=== PATIENT | female | born 1975 | race Two or more races ===

== ENCOUNTER 2025-07-24 22:42 | Inpatient (IN) | payer MEDICAID, SELFPAY ==
[2025-07-24 23:05] VITALS: PULSE 92; RESP 24; O2SAT 96
--- NOTE | 2025-07-24 23:12 | PD.EDABDPN ---
ED Abdominal Pain RME/HPI General Chief Complaint: Abdominal Pain Stated complaint: ABD PAIN Time seen by provider: 07/24/25 23:14 Arrival date/time: 07/24/25 22:42 Limitations: no limitations RME / HPI RME / HPI narrative: Dr. Mary?s Main ED Evaluation: 49yo female with no significant past medical history BIBA from home presents to the ED for complaints of epigastric and RLQ pain x 0800. Pain is intermittent in nature. Patient reports associated nausea and vomiting throughout the day. Patient took Tylenol at home, but vomited it back up. Last bowel movement was at 0600 this morning. Denies any history of similar symptoms. Denies tobacco, alcohol, or illicit drug use. No previous abdominal surgeries. NKA. Related Data Allergies Allergy/AdvReac Type Severity Reaction Status Date / Time No Known Allergies Allergy Verified 07/24/25 23:09 Review of Systems Review of Systems Systems Reviewed: All systems reviewed, normal except as documented ED Exam General Limitations: Present no limitations General appearance: Present alert and in no apparent distress Head Head exam: Present atraumatic Eye Eye exam: Present normal appearance, PERRL and EOMI ENT ENT exam: Present normal exam, normal oropharynx and mucous membranes moist Neck Neck exam: Present normal inspection, full ROM and trachea midline Chest Chest inspection: Present normal inspection and symmetric chest wall rise Respiratory Respiratory exam: Present normal lung sounds bilaterally; Absent respiratory distress Cardiovascular Cardiovascular exam: Present regular rate, normal rhythm and normal heart sounds Abdominal Exam Abdominal exam: Present soft and tenderness (diffuse); Absent distention, guarding or rebound Extremities Exam Extremities exam: Present normal inspection and full ROM Neurological Exam Neurological exam: Present alert, oriented X3 and CN II-XII intact Psychiatric Psychiatric exam: Present normal affect and normal mood Skin Skin exam: Present warm, dry, intact and normal color Course Quality Measures none Orders Category Date Time Status CT Screening NOW Care 07/24/25 23:17 Active NPO NOW Care 07/25/25 01:59 Active Consult to General Surgery Stat Cons 07/25/25 01:59 Ordered Diet NPO (NOW) Diet 07/25/25 01:[address] abdomen pelvis w con Stat Exams 07/24/25 23:17 Taken US abdomen limited Stat Exams 07/25/25 00:00 Ordered Blood Culture (Lab) Stat Lab 07/25/25 02:11 Received CBC Stat Lab 07/24/25 23:35 Completed CMP [Comprehensive Metabolic Panel] Stat Lab 07/24/25 23:35 Completed HCG,Qualitative Serum Stat Lab 07/24/25 23:35 Completed Lipase Stat Lab 07/24/25 23:35 Completed Troponin I Stat Lab 07/24/25 23:35 Completed UA, C/S IF [Urinalysis, C/S if Indicated] Stat Lab 07/25/25 01:50 Completed Morphine* Inj Med 07/24/25 23:18 Discontinued 2 mg IVP X1 ONE Ondansetron Inj [Zofran Inj] Med 07/24/25 23:18 Discontinued 4 mg IVP X1 ONE Piper/Tazo Inj [Zosyn Inj] 4.5 gm Med 07/25/25 01:58 Discontinued Sodium Chloride 0.9% (Pop) [NS 0.9% mini bag] 100 ml IV STAT Ringers Lactated 1000 ml [Lactated Ringers] 1,000 ml Med 07/25/25 01:43 Discontinued IV 999 mls/hr Vital Signs Vital signs: Vital Signs Temperature 101.7 F H 07/24/25 23:26 Pulse Rate 97 07/24/25 23:26 Respiratory Rate 19 07/24/25 23:26 Blood Pressure 136/74 H 07/24/25 23:26 Pulse Oximetry (%) 100 07/24/25 23:26 Oxygen Delivery Method Room Air 07/24/25 23:26 Abdominal Pain MDM MDM Narrative MDM Narrative:: Scribe Attestation: 07/24/25 - Vicki Briseno am scribing for and in the presence of Dr. Mary. Patient is a 49-year-old female to the emergency department concerns for diffuse abdominal pain and vomiting. Vital signs and exam as listed. Concern for urinary tract infection, appendicitis, cholelithiasis, cholecystitis pancreatitis gastritis among others. Ordered labs CT abdomen as well as ultrasound of the right upper quadrant. Patient did present initially appeared to be febrile at 101.7 however on repeat assessment approximately 30 minutes after temperature now normothermic, patient did not receive any antipyretics. Labs with evidence of leukocytosis 13.8, left shift of 93%. Patient with mild hypokalemia potassium 3.3, no significant transaminitis troponin not elevated patient's not lipase not elevated. CT abdomen and pelvis Ultrasound 0156: Teleradiology called, stating the patient has acute appendicitis. Will order blood cultures antibiotics. 0158: Discussed case with Dr. Samson from general surgery regarding consultation. Discussed patients ED course, exam findings, labs, and radiology results. Agrees to consult. 0159: Discussed case with the resident physician, attending Dr. Randhawa from Hospitalist service regarding admission. Discussed patients ED course, exam findings, labs, and radiology results. The Hospitalist agrees to accept the patient for admission. Patient data External records reviewed:: [facility] previous records (Per chart review, patient has no previous ED visits or admissions to this facility.) and EMS form Clinical information provided by:: patient Social determinants that could affect healthcare access:: none Patient has the following chronic illnesses:: none How is presenting disease/condition affected by chronic disease/condition?: no chronic disease Evaluation data The following diagnostics were reviewed and interpreted by me:: lab results and radiology exam(s) Lab and/or radiology exams considered but not ordered:: none Interpretation Summary: CT scan of the abdomen and pelvis with intravenous contrast (axial sections with sagittal and coronal reformats) July 25, 2025 0033 hours Clinical History: Abdominal pain, obstruction, appendicitis. Comparison: None available at the time of this report. Findings: The lung bases are clear. The liver, gallbladder, pancreas, spleen, kidneys and adrenals are unremarkable. No evidence of bowel obstruction. Thickening of the appendix measuring up to 1.5 cm associated with peripheral fat stranding, no perforation, no collections. The uterus and ovaries are within normal limits. There is no mesenteric or retroperitoneal adenopathy. The urinary bladder is unremarkable. There is no free fluid or free air. The osseous structures are unremarkable. Impression: Acute appendicitis. Surgical consult is recommended. This report has been electronically signed by: Robbie Gale MD. Medications / Prescriptions Medications or Prescriptions considered but not ordered:: none Medication administrations:: Medication Administration History Acetaminophen (Acetaminophen 325 Mg Tablet) 650 mg PO Q6H PRN PRN Reason: Fever >100.4 Stop: 08/24/25 02:22 Sodium Chloride (Ns) 1,000 mls @ 75 mls/hr IV .[id number] JERRY Stop: 08/24/25 02:29 Piperacillin/Tazobactam/Dextrose (Zosyn) 3.375 gm in 50 mls @ 100 mls/hr IV Q8HR JERRY; Protocol Stop: 08/01/25 05:59 Morphine Sulfate (Morphine Sulf Inj 4 Mg/Ml Vial) 2 mg IVP Q4HR PRN PRN Reason: PAIN SCALE 4-10(Mod-Sev Stop: 07/30/25 03:18 Ondansetron HCl (Ondansetron Inj 2 Mg/Ml Inj 2 Ml) 4 mg IVP Q6H PRN; Protocol PRN Reason: NAUSEA OR VOMITING Stop: 08/24/25 02:22 Discontinued Medications Acetaminophen (Acetaminophen 325 Mg Tablet) 650 mg PO Q6H PRN PRN Reason: Fever >100.4 Stop: 08/24/25 02:22 Lactated Ringer's (Lactated Ringers) 1,000 mls @ 999 mls/hr IV .Q1H1M ONE Stop: 07/25/25 02:43 Last Admin: 07/25/25 02:19 Dose: 999 mls/hr Documented By: WILL Piperacillin Sod/Tazobactam (Sod 4.5 gm/ Sodium Chloride) 100 mls @ 200 mls/hr IV STAT STA; Protocol Stop: 07/25/25 02:27 Last Infusion: 07/25/25 02:52 Dose: Infused Documented By: Admin: 07/25/25 02:20 Dose: 200 mls/hr Documented By: WILL Morphine Sulfate (Morphine Sulf Inj 4 Mg/Ml Vial) 2 mg IVP X1 ONE Stop: 07/24/25 23:19 Last Admin: 07/24/25 23:47 Dose: 2 mg Documented By: WILL Ondansetron HCl (Ondansetron Inj 2 Mg/Ml Inj 2 Ml) 4 mg IVP X1 ONE; Protocol Stop: 07/24/25 23:19 Last Admin: 07/24/25 23:48 Dose: 4 mg Documented By: WILL see above Consultations Consultation(s) initiated? (list below): Yes Consultation #1 (Physician, Specialty, Details): Discussed case with Dr. Samson from general surgery regarding consultation. Discussed patients ED course, exam findings, labs, and radiology results. Agrees to consult. Diagnosis Differential diagnosis abdominal pain: acute appendicitis, diverticulitis, pancreatitis and other (cholelithiasis, cholecystitis) Most likely diagnosis given after review of the tests above:: see clinical impression below Admission Indicated Admission indicated?: indicated Admission Request Was there a request for admission?: Yes Admission Attestation Admission request attestation: Discussed case with Hospitalist service regarding admission. Discussed patients ED course, exam findings, labs, and radiology results. The Hospitalist [agrees] to accept the patient for admission. Disposition Plan Disposition Plan: Admit Critical Care Time Critical Care Time Critical Care Time: No Discharge Plan Plan Patient Disposition: Admit Acute Care w/in Hospital Problem List Clinical Impression: Acute appendicitis
--- NOTE | 2025-07-24 23:17 | XR_ITS ---
Examination: CT abdomen with intravenous contrast CT pelvis with intravenous contrast 2-D coronal reconstructions 2-D sagittal reconstructions Date and time of exam: July 25, 2025, 0033 hours INDICATIONS: Abdominal pain distention today. CTDI: vol (mGy) 11.4 DLP: (mGycm) 660 Technique: Multiple axial sections of the abdomen and pelvis have been obtained. 64 slice high-resolution scanner used. 3 mm axial sections have been obtained, post intravenous injection 60 cc [id number] 2-D sagittal, coronal reconstructions obtained. Low dose protocols were performed. One or more of the following dose reduction techniques were used; automated exposure control, adjustment of the mA and/or KV according to patient size, use of iterative reconstruction technique. Findings: No visualized liver or splenic lesion No gallstones No pancreatic or adrenal mass Mild bilateral renal scar formation Aorta normal in size in the abdomen Inflamed appendix below and medial to the cecum, no pelvic abscess No bladder mass Urinary bladder intact IMPRESSION: Acute appendicitis No pelvic abscess
[2025-07-24 23:26] VITALS: BP 136/74; PULSE 97; RESP 19; TEMP 38.7; O2SAT 100
[2025-07-24 23:28] VITALS: BMI 36.1
[2025-07-24] MEDS: MORPHINE SULF INJ 4 MG/ML VIAL 2 MG IVP (23:47)
[2025-07-24] MEDS: ONDANSETRON INJ 2 MG/ML INJ 2 ML 4 MG IVP (23:48)
[2025-07-25] VITALS (13 sets, daily range): BP systolic 97–135; BP diastolic 53–94; PULSE 61–106; RESP 12–100; TEMP 35.6–37.4; O2SAT 98–100
--- NOTE | 2025-07-25 | XR_ITS ---
Examination: Abdomen sonogram, Limited Date and time of exam: July 25, 2025, 0432 hours Abdominal pain radiating to the back today Technique: Real-time richardson scale transabdominal sonographic images of the upper abdomen obtained. Findings: Normal gallbladder Normal common bile duct 0.4 cm Pancreatic head 2.9 cm Liver 15.7 cm no focal liver lesions Normal hepatopetal portal venous flow Patent IVC IMPRESSION: Negative study
[2025-07-25 00:06] LABS: HCG,Qualitative Serum Negative
[2025-07-25 00:15] LABS: Alanine Aminotransferase 44 U/L (10-49); Albumin, Serum 4.5 gm/dL (3.5-5.0); Albumin/Globulin Ratio 1.5 (1.2-2.2); Alkaline Phosphatase 99 U/L (46-116); Anion Gap 10 (7-16); Aspartate Amino Transferase 41 U/L (0-34); BUN/Creatinine Ratio 17 Ratio (12-20); Bilirubin,Total 1.2 mg/dL (0.3-1.2); Blood Urea Nitrogen 10 mg/dL (9-23); Calcium 8.6 mg/dL (8.3-10.6); Calcium (Corrected) 8.6 mg/dL (8.5-10.1); Carbon Dioxide 22.9 mMol/L (20.0-31.0); Chloride 104 mMol/L (98-107); Creatinine (Component) 0.6 mg/dL (0.6-1.3); Estimated Creatinine Clearance 109.0 mL/min (>60); Globulin 3.0 gm/dL (2.3-3.5); Glucose 126 mg/dL (74-106); Lipase 31 U/L (12-53); Osmolality,Calculated 274 (275-295); Potassium 3.3 mMol/L (3.4-5.1); Sodium 137 mMol/L (136-145); Total Protein 7.5 gm/dL (5.7-8.2); Troponin I < 0.002 ng/mL (0.0-0.045); eGFR > 60 See Note
[2025-07-25 00:19] LABS: Basophils # (Auto) 0.0 Thou/mm3 (0.0-0.2); Basophils % (Auto) 0 % (0-2.5); Eosinophils # (Auto) 0.0 Thou/mm3 (0.0-0.5); Eosinophils % (Auto) 0 % (0-10); Hematocrit 32.8 % (36.0-46.0); Hemoglobin 10.3 g/dL (12.0-16.0); Immature Granulocytes Auto 0.10 Thou/mm3 (0.00-0.00); Lymphocytes # (Auto) 0.7 Thou/mm3 (1.0-4.8); Lymphocytes % (Auto) 5 % (10-50); Mean Corpuscular HGB Conc 31.4 g/dl (31.0-37.0); Mean Corpuscular Hemoglobin 25.7 pg (25.0-35.0); Mean Corpuscular Volume 82 fL (80-100); Monocytes # (Auto) 0.2 Thou/mm3 (0.0-0.8); Monocytes % (Auto) 1 % (0-12); Neutrophils # (Auto) 12.7 Thou/mm3 (1.8-7.7); Neutrophils % (Auto) 93 % (37-80); Nucleated Red Blood Cell # 0.00 Thou/mm3 (0.00-0.00); Nucleated Red Blood Cell % 0 /100 WBC (0); Platelet Count 288 Thou/mm3 (140-440); RDW Standard Deviation 43.6 fL (36.4-46.3); Red Blood Count 4.01 Miln/mm3 (4.00-5.20); White Blood Count 13.8 Thou/mm3 (3.6-11.0)
--- NOTE | 2025-07-25 02:05 | PRELIM_ITS ---
CT scan of the abdomen and pelvis with intravenous contrast (axial sections with sagittal and coronal reformats) July 25, 2025 0033 hours Clinical History: Abdominal pain, obstruction, appendicitis. Comparison: None available at the time of this report. Findings: The lung bases are clear. The liver, gallbladder, pancreas, spleen, kidneys and adrenals are unremarkable. No evidence of bowel obstruction. Thickening of the appendix measuring up to 1.5 cm associated with peripheral fat stranding, no perforation, no collections. The uterus and ovaries are within normal limits. There is no mesenteric or retroperitoneal adenopathy. The urinary bladder is unremarkable. There is no free fluid or free air. The osseous structures are unremarkable. Impression: Acute appendicitis. Surgical consult is recommended. Discussion Details: Results verbally communicated to : Dr. Mary at 01:59 AM 07/25/2025 Report Electronically Signed By: Robbie Gale 07/25/2025 2:03:56 AM [EST]
[2025-07-25 02:17] LABS: Collection Type, Urine Clean Catch; WBC,Urine 0 /hpf (0-5)
[2025-07-25] MEDS: RINGERS LACTATED 1000 ML 1,000 ML 999 ML IV (02:19)
[2025-07-25] MEDS: PIPER/TAZO INJ 4.5 GM in SODIUM CHLORIDE 0.9% (POP) 100 ML IV (02:20)
[2025-07-25 02:25] LABS: Bacteria,Urine Rare; Bilirubin,Urine Negative (Negative); Blood,Urine Negative (Negative); Clarity,Urine Clear (Clear/Hazy); Color,Urine Lt-Yellow (Lt Yel-Yel); Culture Indicated,Urine Not Indicated; Glucose, Urine Negative (Negative); Ketones,Urine 1+ (Negative); Leukocyte Esterase,Urine Negative (Negative); Nitrite,Urine Negative (Negative); PH,Urine 6.5 (5.0-7.0); Protein,Urine Negative (Neg - Trace); RBC,Urine 4 /hpf (0-3); Specific Gravity,Urine 1.043 (1.001-1.035); Squamous Epithelial Cell,Urine 2 /hpf (0-5); Urobilinogen,Urine Negative mg/dL (0.0-1.0)
--- NOTE | 2025-07-25 02:30 | ESHP_ITS ---
Documentation for date of: 07/25/25 HPI History of Present Illness History of present illness: HPI: 49-year-old angolan-speaking female with no past medical history who presented to the ED [facility] in the late evening of 07/24/2025 with chief complaint of right sided abdominal pain that began the morning before. She described it as a pinching pain and had associated right sided paralumbar pain. Patient mentioned unrelenting nausea and vomiting and was unable to keep water down. She took Tylenol but vomited it back up. Last bowel movement was at 6 AM the morning of presentation. She denied chest pain or shortness of breath but did endorse a fever. She was found to have acute appendicitis on abdominal CT per teleradiology. Patient was admitted for acute appendicitis. ED Course: * Significant vitals on arrival: BP 136/74, temp 101.7. Remainder vitals within normal parameters. * Significant labs: WBC 13.8, hemoglobin 10.3, hematocrit 32.8, potassium 3.3, glucose 126, AST 41 * Imaging: Abdominal CT showed evidence of acute appendicitis * Urine: Specific gravity 1.043, 4 RBC, 1+ ketones * ED intervention: Patient received 2 mg IV push morphine, 4 mg IV push ondansetron, 1 L LR, 4.5 GM Zosyn History: * Past medical history: Patient denies any past medical history * Surgical history: Noncontributory * Social history: Denies alcohol tobacco or illicit drug use Allergies: * No known drug allergies. Home Medications: (Pending Med Rec) * Patient denies taking any home medications CODE STATUS: Full Code Review of Systems Review of Systems Narrative Review of Systems: Review of Systems: * General: Admits to fever, denies chills. * HEENT: Denies headache, congestion, or sore throat. * Cardiac: Denies chest pain or palpitations. * Pulmonary: Denies shortness of breath or cough. * GI: 1 day history of intractable nausea and vomiting, unable to keep down clear fluids, generalized right sided abdominal pain radiating to the back described as constant pinching pain. Denies diarrhea, constipation, melena, or hematochezia. * : Denies dysuria, hematuria, frequency, or urgency. * MSK: Denies pain in the extremities, joints, or myalgias. * Neuro: Denies weakness, numbness, vision changes, or speech difficulty. Exam Vital Signs Temp Pulse Resp BP Pulse Ox O2 Del Method 99.4 F 100 19 122/78 99 Room Air 07/25/25 00:09 07/25/25 00:09 07/25/25 00:09 07/25/25 00:09 07/25/25 00:09 07/25/25 00:09 Narrative Exam General: Awake and in no acute distress. Conversational and non-toxic appearing. Neurologic: GCS 15. Alert and oriented x3, no gross neurological deficit, and patient able to move all 4 extremities. HEENT: Normocephalic, atraumatic, mucous membranes moist. Pupils reactive to light. Heart: Regular rate and rhythm, normal S1 and S2, no murmurs. Lungs: Clear to auscultation bilaterally with no wheezing or crackles. Abdomen: Pain on deep palpation of the entire right side of the abdomen, no guarding, minimal rebound tenderness. Extremities: No edema. 2+ radial and dorsalis pedis pulses bilaterally. Skin: Warm. Dry. No rash or ecchymoses. Results: Labs 07/24/25 23:35 07/24/25 23:35 Labs: Short CBC 07/24/25 Range/Units 23:35 WBC 13.8 H (3.6-11.0) Thou/mm3 Hgb 10.3 L (12.0-16.0) g/dL Hct 32.8 L (36.0-46.0) % Plt Count 288 (140-440) Thou/mm3 BMP 07/24/25 23:35 Sodium 137 Potassium 3.3 L Chloride 104 Carbon Dioxide 22.9 BUN 10 Creatinine 0.6 Glucose 126 H Calcium 8.6 Cardiac Enzymes 07/24/25 Range/Units 23:35 Troponin I < 0.002 (0.0-0.045) ng/mL Liver Function 07/24/25 Range/Units 23:35 Total Bilirubin 1.2 (0.3-1.2) mg/dL AST 41 H (0-34) U/L ALT 44 (10-49) U/L Alkaline Phosphatase 99 (46-116) U/L Albumin 4.5 (3.5-5.0) gm/dL Urine 07/25/25 Range/Units 01:50 Urine Color Lt-Yellow (Lt Yel-Yel) Urine Clarity Clear (Clear/Hazy) Urine pH 6.5 (5.0-7.0) Ur Specific Gamaliel 1.043 H (1.001-1.035) Urine Protein Negative (Neg - Trace) Urine Glucose (UA) Negative (Negative) Quality Measures Quality Measures none Medications Home Medications and Allergies Allergies Allergy/AdvReac Type Severity Reaction Status Date / Time No Known Allergies Allergy Verified 07/24/25 23:09 Visit Medications Acetaminophen (Acetaminophen 325 Mg Tablet) 650 mg PO Q6H PRN PRN Reason: Fever >100.4 Stop: 08/24/25 02:22 Lactated Ringer's (Lactated Ringers) 1,000 mls @ 999 mls/hr IV .Q1H1M ONE Stop: 07/25/25 02:43 Last Admin: 07/25/25 02:19 Dose: 999 mls/hr Sodium Chloride (Ns) 1,000 mls @ 75 mls/hr IV .[id number] JERRY Stop: 08/24/25 02:29 Ondansetron HCl (Ondansetron Inj 2 Mg/Ml Inj 2 Ml) 4 mg IVP Q6H PRN; Protocol PRN Reason: NAUSEA OR VOMITING Stop: 08/24/25 02:22 Discontinued Medications Piperacillin Sod/Tazobactam (Sod 4.5 gm/ Sodium Chloride) 100 mls @ 200 mls/hr IV STAT STA; Protocol Stop: 07/25/25 02:27 Last Admin: 07/25/25 02:20 Dose: 200 mls/hr Morphine Sulfate (Morphine Sulf Inj 4 Mg/Ml Vial) 2 mg IVP X1 ONE Stop: 07/24/25 23:19 Last Admin: 07/24/25 23:47 Dose: 2 mg Ondansetron HCl (Ondansetron Inj 2 Mg/Ml Inj 2 Ml) 4 mg IVP X1 ONE; Protocol Stop: 07/24/25 23:19 Last Admin: 07/24/25 23:48 Dose: 4 mg Assessment & Plan Plan Summary: 49-year-old angolan-speaking female with no past medical history who presented to the ED [facility] in the late evening of 07/24/2025 with chief complaint of right sided abdominal pain that began the morning before. She was found to have acute appendicitis on abdominal CT per teleradiology. Patient was admitted for acute appendicitis. #Acute Appendicitis #Leukocytosis #Fever (Resolved) * Patient presented with intractable nausea and vomiting, unable to hold down water * Patient presented with a temp of 101.7 and WBC of 13.8, patient's fever has improved to 99.4 * CTAP showed evidence of acute appendicitis per teleradiology Plan: * General Surgery consulted * Acetaminophen for fever as needed, pain 1-3 * Saline maintenance fluids at 75/h * Zosyn 3.375 every 8 hours * Zofran 4 mg IV push every 6 as needed for nausea * Morphine 2 mg IV push every 6 hours as needed for pain 4-10 Hospital Maintenance: DVT ppx: SCDs Diet: N.p.o. IV lines: Peripheral IVs Code status: Full code Dispo: MedSurg, admitted for acute appendicitis, surgery consulted, started on antibiotics, Zofran for nausea, and morphine for pain control. Patient was seen and discussed with my attending physician Dr. Edis ROSSI. Darell Kohli DO PGY-1. Attending Provider Attestation/Addendum I have seen and examined the patient. I was physically present for the moss portions of the services provided including history, physical exam, diagnosis, treatment plans and orders. I agree with assessment and plan of care as documented by residents. After examination of the patient and review of the clinical data I feel that this patient needs admission to the hospital for further treatment/evaluation. Even though this this note was carefully revised there may still be minor errors in planting machine operator due to voice recognition software. Joseph Randhawa MD
[2025-07-25] MEDS: SODIUM CHLORIDE 0.9% 1000 ML 1,000 ML 75 ML IV (04:24)
[2025-07-25] MEDS: PIPER/TAZO 3.375 GM PREMIX 3.375 GM/50 ML BAG IV (06:04)
[2025-07-25 06:59] LABS: Basophils # (Auto) 0.0 Thou/mm3 (0.0-0.2); Basophils % (Auto) 0 % (0-2.5); Eosinophils # (Auto) 0.0 Thou/mm3 (0.0-0.5); Eosinophils % (Auto) 0 % (0-10); Hematocrit 31.3 % (36.0-46.0); Hemoglobin 9.8 g/dL (12.0-16.0); Immature Granulocytes Auto 0.10 Thou/mm3 (0.00-0.00); Lymphocytes # (Auto) 1.5 Thou/mm3 (1.0-4.8); Lymphocytes % (Auto) 8 % (10-50); Mean Corpuscular HGB Conc 31.3 g/dl (31.0-37.0); Mean Corpuscular Hemoglobin 25.8 pg (25.0-35.0); Mean Corpuscular Volume 82 fL (80-100); Monocytes # (Auto) 1.2 Thou/mm3 (0.0-0.8); Monocytes % (Auto) 6 % (0-12); Neutrophils # (Auto) 16.2 Thou/mm3 (1.8-7.7); Neutrophils % (Auto) 85 % (37-80); Nucleated Red Blood Cell # 0.00 Thou/mm3 (0.00-0.00); Nucleated Red Blood Cell % 0 /100 WBC (0); Platelet Count 277 Thou/mm3 (140-440); RDW Standard Deviation 44.7 fL (36.4-46.3); Red Blood Count 3.80 Miln/mm3 (4.00-5.20); White Blood Count 19.1 Thou/mm3 (3.6-11.0)
[2025-07-25 07:18] LABS: Alanine Aminotransferase 37 U/L (10-49); Albumin, Serum 4.2 gm/dL (3.5-5.0); Albumin/Globulin Ratio 1.4 (1.2-2.2); Alkaline Phosphatase 78 U/L (46-116); Anion Gap 9 (7-16); Aspartate Amino Transferase 30 U/L (0-34); BUN/Creatinine Ratio 9 Ratio (12-20); Bilirubin,Total 1.1 mg/dL (0.3-1.2); Blood Urea Nitrogen 6 mg/dL (9-23); Calcium 8.5 mg/dL (8.3-10.6); Calcium (Corrected) 8.5 mg/dL (8.5-10.1); Carbon Dioxide 26.1 mMol/L (20.0-31.0); Chloride 106 mMol/L (98-107); Creatinine (Component) 0.7 mg/dL (0.6-1.3); Estimated Creatinine Clearance 93.4 mL/min (>60); Globulin 2.9 gm/dL (2.3-3.5); Glucose 120 mg/dL (74-106); Osmolality,Calculated 279 (275-295); Potassium 3.6 mMol/L (3.4-5.1); Sodium 141 mMol/L (136-145); Total Protein 7.1 gm/dL (5.7-8.2); eGFR > 60 See Note
--- NOTE | 2025-07-25 09:02 | ESCONSULT_ITS ---
HPI Consult details History of present illness: Spoke to pt with in-person communications project manager 49F presenting with abdominal pain. Pt reports pain began the morning of presentation with umbilical and RLQ pain, she denies any history of similar pain and denies associated symptoms such as nausea/diarrhea. Workup is consistent with acute appendicitis PMH: None PSHx: None Meds: None Allergies: NKDA Family hx: No known colon or rectal CA Review of Systems Review of Systems ROS Unobtainable: All systems reviewed & no additional complaints except as documented Meds Home Medications and Allergies Allergies Allergy/AdvReac Type Severity Reaction Status Date / Time No Known Allergies Allergy Verified 07/24/25 23:09 Exam Vital Signs Temp Pulse Resp BP Pulse Ox O2 Del Method 99.0 F 94 17 120/77 98 Room Air 07/25/25 05:59 07/25/25 05:59 07/25/25 05:59 07/25/25 05:59 07/25/25 05:59 07/25/25 05:59 Constitutional Constitutional: no acute distress Routine Respiratory Exam Respiratory: Present no resp distress Routine Abdominal Exam Abdominal: Present soft and tenderness (mild RLQ tenderness); Absent distended, rebound or guarding Results Results: Laboratory Laboratory results: results reviewed Results: Imaging CT scan - abdomen: report reviewed and image reviewed Assessment & Plan Plan 49F presenting with signs/symptoms of acute appendicitis. I explained that while surgery is not mandatory it can be a faster way to recover than antibiotics alone. I explained benefits/risks including need for conversion to open, bleeding, infection, injury to nearby structures and the possibility that the appendix is too walled off to safely remove. All questions were answered and pt is agreeable to proceeding
[2025-07-25] MEDS: ONDANSETRON INJ 2 MG/ML INJ 2 ML 4 MG IVP (10:25)
[2025-07-25] MEDS: MORPHINE SULF INJ 4 MG/ML VIAL 2 MG IVP (10:25)
--- NOTE | 2025-07-25 12:46 | PC.NURSE ---
Hand off report given to ms nurse. Pt was taken to surgery earlier, report given to Adrian COLLINS.
--- NOTE | 2025-07-25 13:32 | ESOP_ITS ---
Date of Procedure 07/25/25 Pre Op Diagnosis Acute appendicitis Post Op Diagnosis Same Procedure Laparoscopic appendectomy Findings Acutely inflamed appendix Procedure Description After discussion of risks and benefits, patient was brought to the operating room, SCDs were placed and general anesthesia was induced. She received preoperative antibiotics and was prepped and draped in the usual sterile fashion. After timeout an infraumbilical incision was made with a #15 blade and the skin was elevated with towel clamps. A Veress needle was placed through the incision and proper positioning was confirmed with a drop test. The abdomen was insufflated to 12 mmHg at which point the Veress needle was exchanged for a 5 mm camera using a Visiport technique. There were no signs of injury from the point of entry. 2 additional ports were placed under direct vision, one 5 mm at the suprapubic region and one 5 mm left lower quadrant. The infraumbilical port was upsized to a 12 mm also under direct vision. Patient was placed in Trendelenburg with left side down. The appendix was identified by tracing the tinea of the colon and was noted to be inflamed. A window was made between the base of the appendix and the mesoappendix using blunt dissection, and the base of the appendix was stapled with a 45 mm blue load. The mesoappendix was transected with the harmonic scalpel. The area was gently irrigated and there was some bleeding of the fat adjacent to the staple line which was controlled with electrocautery. The pelvis was also gently irrigated. The specimen was removed in an Endo Catch bag via the infraumbilical port and the infraumbilical fascia was closed with a 0 Vicryl suture using a Sd-David. Counts were c onfirmed correct. Pneumoperitoneum was released and ports were removed under direct vision. Incisions were irrigated and infiltrated with half percent Marcaine for a total of 20 cc. Incisions were closed with 4 Monocryl and reinforced with Dermabond. Pathology / specimen Other (Appendix) Estimated Blood Loss 20 Surgeon Asiya Samson MD Surgical Staff Operation Date: 07/25/25 13:30 Case Staff INFORMATION RESOURCES DIRECTOR: Moses Tatum RNdirector of corporate sponsorships: Elyssa Bledsoe
--- NOTE | 2025-07-25 13:57 | SUR.PHASEI ---
1327: pt arrived to PACU via gurney drowsy but arouses to voice, breathing unlabored, dressing to abdomen clean, dry, and intact, report from Geovanni COLLINS and Glenn DIEGO. 1342: pt tolerating ice chips without difficulty swallowing or n/v. 1357: pt awake, alert, able to follow commands, breathing unlabored, dressing to abdomen clean, dry, and intact, VS stable, report called to Bijan COLLINS. 1402: pt transferred to room at this time with all belongings.
--- NOTE | 2025-07-25 14:05 | ESDS_ITS ---
<Statement entered by Aaron Hernandez MD - 07/25/25 22:40> I saw and examined patient personally and supervised PGY 1 resident, Dr. Jarrett with formulating a discharge plan. I agree with the documentation as listed below. Plan of care discussed with Attending Dr. Hannah Hernandez MD PGY 2 Disclaimer: This note was dictated by speech recognition. Minor errors in t ranscription may be present due to voice recognition software. Planned Discharge Date 07/25/25 DS: Providers Provider Date of admission: 07/25/25 02:23 Primary care physician: Physician No Primary/Family Admitting Provider: Joseph Randhawa MD Attending Provider on Admission: Joseph Randhawa MD Consults: 07/25/25 01:59 Consult to General Surgery Stat Comment: Consulting Provider: Asiya Samson Attending Provider on DC: Bradley Young DO Discharging Provider: Bradley Young DO DS: Diagnosis Problem List Completed Was Problem List Reviewed/Reconciled?: Yes Hospital Course Hospital Course Hospital course: .Summary: Naty Cortes 49M no significant pmhx presents to [facility] ED 07/24 for one day of RLQ abdominal pain, admitted for acute appendicitis. Patient states that 07/24 morning developed right lower quadrant pain with mild nausea however abdominal pain increased in intensity and she also developed fever, prompting current ED visit. Patient was treated with IV antibiotics, pain management and fluids prior to surgery. General surgery consulted, patient underwent laparoscopic appendectomy with no bowel ischemia or complications. Per general surgery recommendations, patient is stable to be discharged with pain medication. On discharge, patient is hemodynamically stable, vitals and labs reviewed to be st able and patient is ready to be discharged home. Imaging: CTAP: Acute appendicitis, no pelvic abscess Abdominal ultrasound: Negative study Discharge Recommendations: - Please take all medications as prescribed - START Percocet for 3 days and if pain persists, take ibuprofen - Continue all home medications except as above - Please follow up with your PCP within one week of discharge - Please follow up with surgeon, Dr. Samson, within one week of discharge - If your symptoms worsen, please seek immediate medical attention and return to your nearest emergency room. - If you do not have a PCP, you may follow up at the [facility] at [address] [place] [address] [place] [id number], Wound care and further instructions: -Avoid lifting objects greater than 10 pounds for 6 weeks -You may resume showering in 2 days, on 07/27 -It is okay to get incisions wet at that time, pat dry after -Avoid bathing or swimming for 2 weeks -Your incisions have skin glue on them which will fall off on its own and does not need to be replaced. Your stitches will not need to be removed -During the surgery we fill your abdomen with a air in order to see the structures. Some of this air lingers and causes pain that is referred to the shoulder as well as pain with deep breaths. This will get better with time. Being out of bed and walking helps the air to absorb faster Hospital Diagnoses: #Acute appendicitis s/p laparoscopic appendectomy 07/25/2025 #Leukocytosis #Fever, resolved Plan of care discussed with attending Dr. Young, and PGY-2 Dr. Hernandez. Nicole Jarrett, DO Internal Medicine, PGY-1 Time Spent with Patient Time attestation: Total time spent providing and/or coordinating discharge services: Time spent: Greater than 30 minutes Exam Vital Signs Temp Pulse Resp BP Pulse Ox O2 Del Method O2 Flow Rate 97.3 F 82 16 103/64 100 Room Air 2 07/25/25 13:57 07/25/25 13:57 07/25/25 13:57 07/25/25 13:57 07/25/25 13:57 07/25/25 09:53 07/25/25 13:37 Narrative Exam GENERAL: AOx3, no acute distress HEENT: mucous membranes moist, bilateral sclera anicteric CARDIOVASCULAR: regular rate and rhythm, S1/S2 present, no murmurs appreciated PULMONARY: clear to auscultation bilaterally, no rales/rhonchi/wheezes ABDOMINAL: soft, non-distended, no rebound/guarding, bowel sounds present, mildly TTP at lower abdomen, 3 incision sites clean and sealed with glue EXTREMITIES: no peripheral edema SKIN: warm and dry, intact, no rashes NEURO: CN II-XII grossly intact, no focal deficits, alert, following commands Discharge Plan Plan Patient Disposition: HOME (Self Care) Patient condition on transfer: Stable Care Plan Goals: Discharge Recommendations: - Please take all medications as prescribed - START Percocet for 3 days and if pain persists, take ibuprofen - Continue all home medications except as above - Avoid lifting objects greater than 10 pounds for 6 weeks - You may resume showering in 2 days, on 07/27 - It is okay to get incisions wet at that time, pat dry after - Avoid bathing or swimming for 2 weeks - Your incisions have skin glue on them which will fall off on its own and does not need to be replaced. Your stitches will not need to be removed - During the surgery we fill your abdomen with a air in order to see the structures. Some of this air lingers and causes pain that is referred to the shoulder as well as pain with deep breaths. This will get better with time. Being out of bed and walking helps the air to absorb faster - Please follow up with your PCP within one week of discharge - Please follow up with surgeon, Dr. Samson, within one week of discharge - If your symptoms worsen, please seek immediate medical attention and return to your nearest emergency room. - If you do not have a PCP, you may follow up at the [facility] at [facility] [address], [facility] [address], Recomendaciones al eder: - [facility] todos los medicamentos seg?n lo recetado. - Comience a alphonse Percocet jack 3 d?as y, si el dolor persiste, tome ibuprofeno. - Contin?e con todos eva medicamentos habituales, excepto los mencionados anteriormente. - Evite levantar objetos que pesen m?s de 4.5 kg (10 libras) jack 6 semanas. - Puede ducharse a partir de dos d?as despu?s del eder, el 18 de diciembre. - Puede mojar las incisiones en kajal momento; s?quelas con palmaditas despu?s. - Evite ba?arse o nadar jack 2 semanas. - Las incisiones tienen un adhesivo cut?cyndy que se desprender? solo y no necesita ser reemplazado. No ser? necesario retirar los puntos de sutura. - Jack la cirug?a, llenamos gaona abdomen con aire para poder visualizar las estructuras. Parte de la aire permanece y causa dolor que se irradia al hombro, as? rosa dolor al respirar profundamente. [place] mejorar? con el tiempo. Levantarse de la cama y caminar ayuda a que el aire se absorba m?s r?pido. - Consulte con gaona m?dico de cabecera dentro de la primera semana despu?s del eder. - Consulte con el cirujano, Dr. Samson, dentro de la primera semana despu?s del eder. - Si eva s?ntomas empeoran, busque atenci?n m?dica de inmediato y acuda a la katherine de emergencias m?s cercana. - Si no tiene un m?dico de cabecera, puede acudir al [facility] [address] en [address], [address], [place] [address], Tel?fono: . Prescriptions/Referrals Prescriptions/Med Rec: New oxycodone-acetaminophen [Percocet] 5-325 mg tablet 1 tab PO Q8H MDD 3 tabs PRN (Reason: pain) Qty: 9 0RF Referrals: Asiya Samson MD [Physician, General Surgery] Referral Note: You will receive a message to confirm a follow-up appointment with me in 2 weeks No Primary/Family,Physician [Primary Care Provider] Patient/Caregiver Discharge Instructions Other Discharge Activity Instructions:: Avoid lifting objects greater than 10 pounds for 6 weeks You may resume showering in 2 days, on 07/27 It is okay to get incisions wet at that time, pat dry after Avoid bathing or swimming for 2 weeks Your incisions have skin glue on them which will fall off on its own and does not need to be replaced. Your stitches will not need to be removed During the surgery we fill your abdomen with a air in order to see the structures. Some of this air lingers and causes pain that is referred to the shoulder as well as pain with deep breaths. This will get better with time. Being out of bed and walking helps the air to absorb faster Evite levantar objetos de m?s de 4,5 kg (10 libras) jack 6 semanas. Puede volver a ducharse en 2 d?as, el 18 de diciembre. En kajal momento, no hay problema en mojar las incisiones; s?quelas con palmaditas despu?s. Evite ba?arse o nadar jack 2 semanas. Eva incisiones tienen un adhesivo cut?cyndy que se desprender? solo y no necesita ser reemplazado. No ser? necesario quitarle los puntos. Jack la cirug?a, llenamos gaona abdomen con aire para poder visualizar las estructuras. Parte de la aire permanece en el cuerpo y causa dolor que se irradia al hombro, as? rosa dolor al respirar profundamente. [place] mejorar? con el tiempo. Levantarse de la cama y caminar ayuda a que el aire se absorba m?s r?pido. Education Materials: Anesthesia: General Anesthesia, Surgery Anesthesia After, Appendectomy Laparoscopic Dc, Preventing Surgical Site Infections, Skin Adhesive Wound Care Instructions, [facility] General Discharge-Czech, [facility] General SDC Instructions- Occitan Print Language: Czech Activity Restrictions/Additional Instructions: Avoid lifting objects greater than 10 pounds for 6 weeks You may resume showering in 2 days, on 07/27 It is okay to get incisions wet at that time, pat dry after Avoid bathing or swimming for 2 weeks Your incisions have skin glue on them which will fall off on its own and does not need to be replaced. Your stitches will not need to be removed During the surgery we fill your abdomen with a air in order to see the structures. Some of this air lingers and causes pain that is referred to the shoulder as well as pain with deep breaths. This will get better with time. Being out of bed and walking helps the air to absorb faster Stand Alone Forms: Chloe Award Info., Patient Portal Info Letter Discharge Order Discharge Orders: Discharge (Routine); Ordered 07/25/25 Ordered By: Aaron Hernandez Quality Discharge Quality Measures VTE prophylaxis Attestestation MD Attestation I have discussed and was present for the essential components of the discharge history, physical examination, diagnosis, and discharge treatment plan with the resident. I agree with the patient's discharge care as documented by the resident and amended herein by me. Fidel Young, . The patient understood all discharge instructions, all questions were answered satisfactorily. The patient was instructed to return to the Emergency Department is symptoms worsened or persisted. Patient was stable, afebrile, tolerating p.o. intake and ambulatory at time of discharge home. See resident note above for additional details. Although this document has been carefully reviewed, there may still be some phonetic and other typographical errors. These errors are purely grammatical due to imperfections in the software program and should not be construed in any way to compromise the substance of the patient's medical care during this visit.
[2025-07-25] MEDS: HYDROcodone/APAP 5/325 TABLET 1 TAB PO (16:06)
== END 2025-07-25 17:40 | disposition home or self-care (01) | DRG 234 ==
LOC: SERX 07-25 02:54 → SERHOLD 07-25 03:11 → S3SX 07-25 14:27
PROVIDERS: Surgery; Admitting Provider Student in an Organized Health Care Education/Training Program; Emergency Provider Emergency Medicine; Visit Provider Student in an Organized Health Care Education/Training Program
PROC: 0DTJ4ZZ Resection of Appendix, Percutaneous Endoscopic Approach (ICD-10-PCS; CPT 44970; principal; 2025-07-25 13:15)
DX: K35.80 Unspecified acute appendicitis (principal); E87.6 Hypokalemia; B35.9 Dermatophytosis, unspecified
CPT/HCPCS: 36415; 74177; 76705; 80053; 81001; 83690; 84484; 84703; 85025; 87040; 96374; 96375; 99284; A4217; A4649; J0694; J1100; J1885; J2250; J2270; J2371; J2405; J2543; J2704; J3010; J3490; J7030; J7120; Q9967; A9270